=== PATIENT | male | born 1975 | race Caucasian/White ===

== ENCOUNTER 2018-09-06 11:28 | Emergency (ER) | payer SELFPAY ==
[~2018-09-06] VITALS: Ht 177.8 cm; Wt 79.5 kg
[2018-09-06 12:12] VITALS: BP 154/96
== END 2018-09-06 12:54 | disposition left against medical advice (07) ==
LOC: EMS 11:32
DX: M54.5 Low back pain (principal); Z53.21 Procedure and treatment not carried out due to patient leaving prior to being seen by health care provider